=== PATIENT | female | born 1980 | race Caucasian/White ===

== ENCOUNTER 2021-08-09 12:02 | Emergency (ER) | payer OTHER ==
[~2021-08-09] VITALS: Ht 170.2 cm; Wt 74.8 kg
[~2021-08-09 12:02] MED LIST: COLACE100 MG PO; DOSS PO; NORCO 5-325 TA1 EACH PO; PERCOCET 5-3251 EACH PO; PHENERGAN 12.12.5 M1 PO; YAZ 28 TABLET1 EACH PO
== END 2021-08-09 15:19 | disposition home or self-care (01) ==
LOC: ER1 12:02
DX: U07.1 COVID-19 (principal); Z23 Encounter for immunization; F17.200 Nicotine dependence, unspecified, uncomplicated
CPT/HCPCS: 99283; M0243

== ENCOUNTER 2021-08-19 15:50 | Emergency (ER) | payer OTHER ==
[2021-08-19] MEDS ORDERED: BACTROBAN OINT22 GM EXT (16:31)
== END 2021-08-19 16:45 | disposition home or self-care (01) ==
LOC: ER1 15:50
DX: S61.412A Laceration without foreign body of left hand, initial encounter (principal); Z23 Encounter for immunization; W26.0XXA Contact with knife, initial encounter
CPT/HCPCS: 12001; 90471; 90715; 99283